=== PATIENT | male | born 1960 | race Caucasian/White ===

== ENCOUNTER 2018-07-08 07:27 | Day surgery (SDC) | payer BC ==
--- NOTE | 2018-06-24 07:14 | HP ---
PREOPERATIVE HISTORY AND PHYSICAL: DATE OF ADMISSION/SURGERY: 07/08/18 DATE OF OFFICE VISIT: 06/23/18 ATTENDING SURGEON: Todd Ulrich MD * (DICTATED BY ALETHA ARRIAGA) PROCEDURES: Right wrist proximal row carpectomy, possible four-corner fusion, posterior interosseous nerve neurectomy, left wrist injection. CHIEF COMPLAINT: Right wrist. HISTORY OF PRESENT ILLNESS: Scott is a 58-year-old male who presents to the clinic for right wrist pain due to early stage III SLAC wrist. He has failed conservative measures, therefore agreed to undergo right wrist proximal row carpectomy, possible four-corner fusion, posterior interosseous nerve neurectomy and left wrist injection with Dr. Ulrich on 07/08/18. PAST MEDICAL HISTORY: Arthritis. PAST SURGICAL HISTORY: Right rotator cuff repair in 2013. Denies prior complications with anesthesia. MEDICATIONS: No active medications. ALLERGIES: No known drug allergies. FAMILY HISTORY: Positive for heart disease, hypertension, stroke, and cancer. Denies family history of DVT or PE. SOCIAL HISTORY: He lives with his spouse. 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 He has never smoked. He reports 5 alcoholic beverage consumption per week. He exercises sporadically. He is right-hand dominant. He denies illegal drug use. REVIEW OF SYSTEMS: A 14-point review of systems was reviewed with the patient. Positive for current complaint, otherwise negative. Denies fevers, chills, chest pain, shortness of breath, history of DVT or PE, history of bleeding disorder. PHYSICAL EXAMINATION GENERAL: A 58-year-old well-developed, well-nourished male, in no acute distress. VITAL SIGNS: Height 67.5, weight 216, pulse 60, blood pressure 156/90, respiratory rate 14, BMI 33.4. HEENT: Normocephalic, atraumatic. PERRLA. Throat: Clear. NECK: Supple. PULMONARY: Lungs are clear to auscultation bilaterally. No wheezing, rhonchi, or rales. CARDIO: Regular rate and rhythm. S1, S2. No murmurs, gallops, or rubs. No edema. ABDOMEN: Positive bowel sounds, soft, nontender. NEURO: Alert and oriented x3. Cranial nerves grossly intact. MUSCULOSKELETAL: Right upper extremity, skin is intact. No warmth or erythema. Limited range of motion of the wrist with about 30 to 40 degrees of extension, flexion to 50 to 60 degrees, tenderness over the dorsal aspect particularly on the radial side, swelling over the dorsal radial wrist. +2 radial pulses. Sensation intact to light touch distally. DIAGNOSTIC STUDIES/LAB DATA: x-rays of the bilateral wrist show stage II SLAC wrist. 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 PLAN: The patient is scheduled to undergo a right wrist proximal row carpectomy , possible four-corner fusion, posterior interosseous nerve neurectomy, and left wrist injection with Dr. Ulrich on 07/08/18. He will follow up in 10 to 14 days postop for a followup and suture removal. ALETHA ARRIAGA [id number]/[facility] #: [id number] MTDD
[~2018-07-08 07:27] MED LIST: Buffered Lidocaine 1% SYRIN* 1 ML/SYRINGE INTRADERM ONE; Lactated Ringers 1000 ML Bag* 1,000 ML IV SCH
[2018-07-08] MEDS ORDERED: ceFAZolin 2 GM in NS PREMIX(*) 2 GM/100 ML BAG IVPB ONE (07:38)
[2018-07-08] MEDS ORDERED: Famotidine IV* 10 MG/ML 2 ML (20 mg) ONE (09:17)
[2018-07-08] MEDS ORDERED: Dexamethasone IV* 4 MG/ML 1 ML (4 MG) ONE (09:17)
[2018-07-08] MEDS ORDERED: Propofol* 10 MG/ML 20 ML BTL ONE (09:24)
[2018-07-08] MEDS ORDERED: KETAMINE HCL* 50 MG/ML 10 ML VIAL ONE (09:24)
[2018-07-08] MEDS ORDERED: Lidocaine 2% PF * 5 ML VIAL ONE (09:24)
[2018-07-08] MEDS ORDERED: Midazolam* 1 MG/ML 5 ML VIAL (5 MG) ONE (09:24)
[2018-07-08] MEDS ORDERED: fentaNYL* 50 MCG/ML 5 ML VIAL (250 MCG VIAL) ONE (09:24)
[2018-07-08] MEDS ORDERED: Betamethasone INJ* 6 MG/ML 5 ML VIAL (30 MG) ONE (09:27)
[2018-07-08] MEDS ORDERED: Bupivacaine 0.25% SDV* 30 ML ONE (09:27)
[2018-07-08] MEDS ORDERED: Lidocaine 1%* 5 ML VIAL ONE (09:28)
[2018-07-08] MEDS ORDERED: Ketorolac INJ* 30 MG/ML 1 ML VIAL ONE (09:55)
[2018-07-08] MEDS ORDERED: Ondansetron INJ* 2 MG/ML VIAL ONE (11:02)
[2018-07-08] MEDS ORDERED: PROCHLORPERAZINE INJ 5 MG/ML 2 ML VIAL ONE (12:41)
[2018-07-08] MEDS ORDERED: fentaNYL* 50 MCG/ML 2 ML VIAL (100 MCG VIAL) ONE ×2 (13:13→14:05)
[2018-07-08] MEDS ORDERED: HYDROcodone/ACETAMIN 5-325 MG* 1 TAB PO PRN (14:05)
[2018-07-08] MEDS ORDERED: oxyCODONE/Acetamin 5/325 MG* TAB PO PRN (14:05)
[2018-07-08] MEDS ORDERED: Naloxone* 0.4 MG/ML 1 ML VIAL IV PRN (14:05)
[2018-07-08] MEDS: fentaNYL* 50 MCG/ML 2 ML VIAL (100 MCG VIAL) IV PRN ×2 (14:06→14:17)
[2018-07-08] MEDS ORDERED: HYDROcodone/ACETAMIN 5-325 MG* 1 TAB ONE (14:17)
[2018-07-08 15:33] VITALS: BP 129/78
--- NOTE | 2018-07-08 23:41 | OP ---
DATE OF OPERATION: 07/08/18 - [facility] DATE OF : 60 SURGEON: Todd Ulrich MD. GLOVE EXAMINER: ALETHA Reyes. An retail store assistant was needed for the entirety of the procedure to aid in positioning of the arm and retraction. ANESTHESIOLOGIST: Dr. Leyva. ANESTHESIA: General. PRE-OP DIAGNOSIS: Right stage 2 to 3 scapholunate advanced collapse wrist. POST-OP DIAGNOSES: Right stage 3 scapholunate advanced collapse wrist. OPERATIVE PROCEDURE: 1. Right wrist scaphoid excision. 2. Right wrist four-corner fusion with distal radius bone graft. 3. Right wrist posterior interosseous nerve neurectomy. ESTIMATED BLOOD LOSS: 20 mL. COMPLICATIONS: Forward fixation of the Acutrak screw required conversion to fusion with the TriMed four-corner fusion plate. INDICATIONS: Scott is 58 years old. He has had a SLAC wrist for some time now. He is at a point now where he wants to proceed with fusion, and so we had discussed risks and benefits and he wanted to proceed. FINDINGS: See above and below. DESCRIPTION OF PROCEDURE: Scott was seen in the preoperative holding area. The correct site, side, and procedure were identified. We came back to the operating room and the arm was prepped and draped in the usual fashion and a time-out was performed. The arm was exsanguinated with the Esmarch and the tourniquet was inflated to 250 mmHg. I began by making a dorsal midline incision. Dissection was carried down through the subcutaneous tissue and full-thickness flaps were raised off the extensor retinaculum. I then opened up the extensor retinaculum overlying the third dorsal compartment. The EPL tendon was released and retracted out of the way. I then raised retinacular flaps radially and ulnarly and then retracted the tendons out of the way to expose the dorsum of the wrist capsule. I then dissected out the last 2 to 3 cm of posterior interosseous nerve. This was clipped at the joint capsule than more proximally and handed off as specimen. After the neurectomy, I went ahead and made a transverse capsulotomy and raised a distally based capsular U-flap to expose the dorsal carpus. The capitolunate articulation was examined, and there was full-thickness cartilage loss there, so we decided to proceed with the four-corner fusion. The scaphoid was excised in piecemeal fashion with the rongeur. The remnant of scapholunate interosseous ligament was excised as well. The radiolunate joint looked good. The lunate was in a lot of hyperextension. I went ahead and prepared my sites for fusion between the lunate and the capitate, the hamate and the triquetrum, the capitate and the hamate and so on. I did this with the rongeur as well as a 2-mm bur. Once I had good cancellous bone that was good for fusion, I went ahead and pinned my lunate out of extension to the capitate using a 0.62-mm K- wire. I then placed the guidewire in the central position on the lunate. This was a guidewire from Mini Acutrak screw. This was placed up into the capitate into the center-center position. I thought everything was looking good. I went ahead and drilled for my screw. I previously measured prior to drilling and selected a 26-mm screw. This was placed up at the appropriate position; however, when I checked my x-ray after placing the screw, the fixation did not look good, and so I checked this clinically and indeed it was not looking good. I thought I could get a better fixation by removing that screw and switching it to a standard Acutrak screw. I did this. I went a couple of millimeters longer as well, and I still had poor fixation. I therefore decided to abandon trying to do the fusion with Acutrak screws and converted to the TriMed dorsal four-corner fusion plate. Given the fact that I would not get as much compression with the plate, I went ahead and harvested some dorsal distal radius bone graft by using my osteotome to open up the dorsal cortex and then the curette to get plenty of cancellous bone from the distal radius. I clamped my articulating surfaces together and pinned them in place with few 0.62 K-wires. I then selected the appropriate size TriMed plate, which was I believe 14 mm. I used the reamer to create a trough for the plate. The plate was placed into position and held in place by the small K-wires that come in the set. I then placed two screws into the capitate, two screws into the lunate, one screw into the triquetrum, and two screws into the hamate. That was all of the holes in the plate. I had already confirmed the alignment on fluoroscopy. I checked my screw length. Everything was looking good. At this point, we were 2-1/2 hours into the tourniquet, so I went ahead and let down the tourniquet. The hand pinked up immediately. I went ahead and copiously irrigated everything out. The wrist at this point had excellent motion without any block with dorsiflexion or palmar flexion. The wrist joint was irrigated out copiously. I then closed the dorsal capsule with 4-0 Vicryl suture. The retinaculum was closed with 3-0 PDS suture, leaving the EPL and the EDM tendons transposed. The wound was irrigated out again. The subcutaneous tissue was reapproximated with 3-0 Vicryl suture and the skin was closed with 4-0 Monocryl suture and Steri-Strips. Marcaine was infiltrated all around the wound. The wound was dressed with 4x4s, Webril, and then a volar plaster wrist splint was applied. He was then taken to the recovery room in stable condition. [id number]/[facility] #: [id number] KENNEY
== END 2018-07-08 13:29 | disposition home or self-care (01) ==
LOC: OREAST 07:27
PROVIDERS: ATTEND Orthopaedic Surgery Hand Surgery
DX: M19.031 Primary osteoarthritis, right wrist (principal); M24.531 Contracture, right wrist
CPT/HCPCS: 76000; 88305; C1713; C1776; J0690; J0702; J0780; J1100; J1885; J2250; J2405; J2704; J3010

== ENCOUNTER 2019-07-11 10:54 | Emergency (ER) | payer BC ==
--- NOTE | 2019-07-11 11:16 | ED ---
Hypertension - HPI Summary HPI Summary: Patient is a 59 y/o M presenting to the ED for a chief complaint of hypertension. Patient reports beginning to feel unwell on 07/08/19 that continued through the weekend. Patient states that he checked his blood pressure on 07/11/19 which was 188/87. Patient notes having a headache, decreased concentration, anxiety, and feeling "shaky." He rates the headache as a 3/10 in severity. Patient denies fever, chest pain or pressure, shortness of breath, or cough. 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 No alleviating factors are reported. He denies an increase in his caffeine intake from his usual consumption. Any significant PMHx including a history of HTN, thyroid problems, or cardiac problems are denied. FMHx of cardiac disease is noted. He takes a vitamin daily, but denies taking any other supplements. Patient denies tobacco use or drug use. He admits drinking 2 beers daily. - History of Current Complaint Chief Complaint: EDHypertension Stated Complaint: HIGH BP PER PT Time Seen by Provider: 07/11/19 11:00 Hx Obtained From: Patient Onset/Duration: Atraumatic, Still Present Timing: Constant Reported Blood Pressure Prior To Arrival: 188/87 Aggravating Factor(s): Other: - Stress Alleviating Factor(s): Nothing Associated Signs & Symptoms: Headaches - Allergies/Home Medications Allergies/Adverse Reactions: Allergies Allergy/AdvReac Type Severity Reaction Status Date / Time Penicillins AdvReac Unknown Verified 07/11/19 10:58 Reaction Details Home Medications: Home Medications Multivitamins/Minerals TAB* [Thera M Plus TAB*] 1 tab PO DAILY 01/02/17 [ History Confirmed 07/11/19] PMH/Surg Hx/FS Hx/Imm Hx Previously Healthy: Yes Endocrine/Hematology History: Denies: Hx Thyroid Disease Cardiovascular History: Denies: Hx Hypertension, Hx Pacemaker/ICD, Other Cardiovascular Problems/ Disorders Musculoskeletal History: Reports: Hx Arthritis - WRISTS, Other Musculoskeletal History - RIGHT WRIST Denies: Hx Rheumatoid Arthritis, Hx Osteoporosis Sensory History: Reports: Hx Contacts or Glasses - GLASSES Denies: Hx Legally Blind, Hx Deafness, Hx Hearing Aid Opthamlomology History: Reports: Hx Contacts or Glasses - GLASSES Denies: Hx Legally Blind EENT History: Denies: Hx Deafness Psychiatric History: Denies: Hx Panic Disorder - Surgical History Surgical History: Yes Surgery Procedure, Year, and Place: Rt ROTATOR [facility] Hx Anesthesia Reactions: No Infectious Disease History: No Infectious Disease History: Denies: Traveled Outside the [place] in Last 30 Days - Family History Known Family History: Positive: Cardiac Disease - Social History Occupation: Employed Full-time Lives: With Family Alcohol Use: Daily Alcohol Amount: 2 beers daily Hx Substance Use: No Substance Use Type: Reports: None Hx Tobacco Use: No Smoking Status (MU): Never Smoked Tobacco Have You Smoked in the Last Year: No Review of Systems Negative: Fever Negative: Chest Pain Negative: Shortness Of Breath, Cough Positive: Headache Psychological: Other - Positive decreased concentration Positive: Anxious All Other Systems Reviewed And Are Negative: Yes Physical Exam - Summary Physical Exam Summary: Constitutional: Well-developed, Well-nourished, Alert. (-) Distressed Skin: Warm, Dry HENT: Normocephalic; Atraumatic Eyes: Conjunctiva normal Neck: Musculoskeletal ROM normal neck. (-) JVD, (-) Stridor, (-) Tracheal deviation Cardio: Rhythm regular, rate normal, Heart sounds normal; Intact distal pulses; The pedal pulses are 2+ and symmetric. Radial pulses are 2+ and symmetric. (-) Murmur Pulmonary/Chest wall: Effort normal. (-) Respiratory distress, (-) Wheezes, (-) Rales Abd: Soft, (-) tenderness, (-) Distension, (-) Guarding, (-) Rebound Musculoskeletal: (-) Edema Lymph: (-) Cervical adenopathy Neuro: Alert, Oriented x3 Psych: Mood and affect Normal Triage Information Reviewed: Yes Vital Signs On Initial Exam: Initial Vitals Temp Pulse Resp BP Pulse Ox 98.7 F 83 16 184/95 98 07/11/19 10:56 07/11/19 10:56 07/11/19 10:56 07/11/19 10:56 07/11/19 10:56 Vital Signs Reviewed: Yes Procedures - Sedation Patient Received Moderate/Deep Sedation with Procedure: No Diagnostics - Vital Signs Vital Signs Temp Pulse Resp BP Pulse Ox 07/11/19 10:56 98.7 F 83 16 184/95 98 - Laboratory Result Diagrams: 07/11/19 11:12 07/11/19 11:12 Lab Statement: Any lab studies that have been ordered have been reviewed, and results considered in the medical decision making process. - EKG 11:19 Cardiac Rate: NL - 76 BPM EKG Rhythm: Sinus Rhythm ST Segment: Normal Ectopy: None EKG Comparison: No Significant Change - No prior EKG available for comparison Summary of EKG Findings: EKG at 11:19 shows normal sinus rhythm with 76 BPM, isolated T wave inversion in lead III. No prior EKG available for comparison. Dr. Sifuentes has reviewed and interpreted this EKG. Hypertension Course/Dx - Course Course Of Treatment: Patient is a 59 y/o M presenting to the ED for a chief complaint of hypertension. Patient reports beginning to feel unwell on 07/08/19 that continued through the weekend. Patient states that he checked his blood pressure on 07/11/19 which was 188/87. Patient notes having a headache, decreased concentration, anxiety, and feeling "shaky." He rates the headache as a 3/10 in severity. Patient denies fever, chest pain or pressure, shortness of breath, or cough. Any significant PMHx including a history of HTN, thyroid problems, or cardiac problems are denied. FMHx of cardiac disease. On exam, unremarkable findings. EKG at 11:19 shows normal sinus rhythm with 76 BPM, isolated T wave inversion in lead III. No prior EKG available for comparison. All other abnormal lab results are not pertinent to current cc. Patient's ED workup negative for acute pathology. BP trended down towards normal without medication. Elevated BP likely stress related. Patient comfort with discharge home. Patient will be discharged with a diagnosis of elevated blood pressure reading, stress, and headache. Follow up with PCP in 2-3 days. - Diagnoses Provider Diagnoses: Elevated blood pressure reading, Headache, Stress Discharge ED - Sign-Out/Discharge Documenting (check all that apply): Patient Departure - Discharge - Discharge Plan Condition: Stable Disposition: HOME Patient Education Materials: Stress (ED) Referrals: Leon Neville MD [Primary Care Provider] - Additional Instructions: RETURN TO THE EMERGENCY DEPARTMENT FOR CHANGING OR WORSENING SYMPTOMS. Follow up with your primary care physician in 2-3 days. - Billing Disposition and Condition Condition: STABLE Disposition: Home - Attestation Statements Document Initiated by Scribe: Yes Documenting Scribe: Brooke Cash Provider For Whom Scribe is Documenting (Include Credential): German Sifuentes DO Scribe Attestation: IBrooke, scribed for German Sifuentes DO on 07/11/19 at 1308. Scribe Documentation Reviewed: Yes Provider Attestation: The documentation as recorded by the scribe, Brooke Cash accurately reflects the service I personally performed and the decisions made by me, German Sifuentes DO Status of Scribe Document: Viewed
[2019-07-11 11:23] LABS: ABS Basophils 0.1 10^3/ul (0-0.2); ABS Eosinophils 0.1 10^3/ul (0-0.6); ABS Lymphocytes 2.2 10^3/ul (1.0-4.8); ABS Monocytes 0.6 10^3/ul (0-0.8); ABS Neutrophils 4.7 10^3/ul (1.5-7.7); Eosinophil % 1.7 %; Hematocrit 47 % (42-52); Lymphocyte % 28.3 %; Mean Corpuscular HGB Conc 36 g/dL (31-36); Mean Corpuscular Hemoglobin 34 pg (27-31); Mean Corpuscular Volume 96 fL (80-94); Mean Platelet Volume 7.3 fL (7.4-10.4); Platelet Count 269 10^3/uL (150-450); Red Blood Count 4.96 10^6 /uL (4.18-5.48); Red Cell Distribution Width 13 % (10-15); White Blood Count 7.8 10^3/uL (3.5-10.8)
[2019-07-11 11:39] LABS: Albumin 4.2 g/dL (3.2-5.2); Albumin/Globulin Ratio 1.4 (1-3); BUN/Creatinine Ratio 17.3 (8-20); Calcium 9.4 mg/dL (8.6-10.3); EGFR African American 88.4 (>60); EGFR Non-African American 73.1 (>60); Potassium 4.2 mmol/L (3.5-5.0); Total Bilirubin 0.6 mg/dL (0.2-1.0); Total Protein 7.2 g/dL (6.4-8.9)
[2019-07-11 11:40] LABS: Troponin I 0.01 ng/mL (<0.03)
[2019-07-11 12:48] VITALS: BP 143/90
== END 2019-07-11 12:56 | disposition home or self-care (01) ==
LOC: ED 10:54
DX: R51 Headache (principal); R03.0 Elevated blood-pressure reading, without diagnosis of hypertension; F43.9 Reaction to severe stress, unspecified; F41.9 Anxiety disorder, unspecified; Z88.0 Allergy status to penicillin; Z79.899 Other long term (current) drug therapy
CPT/HCPCS: 36415; 80053; 84443; 84484; 85025; 93005; 99283

== ENCOUNTER 2020-08-25 15:56 | Inpatient (IN) ==
[2020-08-25] MEDS ORDERED: Nitro 2% OINT (Nitroglycerin) 1 INCH/PAK TOPICAL ONE (16:13)
[2020-08-25 16:21] LABS: ABS Basophils 0.1 10^3/ul (0-0.2); ABS Eosinophils 0.2 10^3/ul (0-0.6); ABS Lymphocytes 2.3 10^3/ul (1.0-4.8); ABS Monocytes 0.8 10^3/ul (0-0.8); ABS Neutrophils 6.1 10^3/ul (1.5-7.7); Eosinophil % 2.3 %; Hematocrit 48 % (42-52); Hemoglobin 16.6 g/dL (14.0-18.0); Lymphocyte % 24.5 %; Mean Corpuscular HGB Conc 35 g/dL (31-36); Mean Corpuscular Hemoglobin 33 pg (27-31); Mean Corpuscular Volume 96 fL (80-94); Mean Platelet Volume 7.6 fL (7.4-10.4); Platelet Count 254 10^3/uL (150-450); Red Blood Count 4.98 10^6 /uL (4.18-5.48); Red Cell Distribution Width 13 % (10-15); White Blood Count 9.5 10^3/uL (3.5-10.8)
[2020-08-25 16:40] LABS: ALT 35 U/L (7-52); AST 26 U/L (13-39); Albumin 3.8 g/dL (3.2-5.2); Albumin/Globulin Ratio 1.4 (1-3); Alkaline Phosphatase 62 U/L (34-104); Anion Gap 6 mmol/L (2-11); Blood Urea Nitrogen 18 mg/dL (6-24); CO2 Carbon Dioxide 27 mmol/L (22-32); Chloride 103 mmol/L (101-111); EGFR African American 89.1 (>60); EGFR Non-African American 73.7 (>60); Globulin 2.7 g/dL (2-4); Glucose 116 mg/dL (70-100); Magnesium 1.9 mg/dL (1.9-2.7); Sodium 136 mmol/L (135-145); Total Protein 6.5 g/dL (6.4-8.9)
[2020-08-25 16:44] LABS: Troponin I 0.07 ng/mL (<0.03)
[2020-08-25] MEDS ORDERED: Ondansetron 4 mg VIAL 2 MG/ML 2 ml VIAL IV PRN (18:13)
[2020-08-25 19:31] LABS: Troponin I 0.47 ng/mL (<0.03)
[2020-08-25] MEDS ORDERED: Heparin DRIP 25,000 UNITS BAG 25,000 UNITS/500 ML BAG IV SCH (19:45)
[2020-08-25] MEDS ORDERED: Heparin 5000 UNITS/ML 1 mL VIAL IV PRN (20:00)
[2020-08-25] MEDS ORDERED: Heparin 5000 UNITS/ML 1 mL VIAL IV SCH (20:00)
[2020-08-25] MEDS: Heparin DRIP 25,000 UNITS BAG 25,000 UNITS/500 ML BAG IV SCH (20:38)
[2020-08-25] MEDS ORDERED: Heparin 5000 UNITS/ML 1 mL VIAL SUBCUT SCH (22:00)
[2020-08-26 02:13] LABS: Troponin I 1.36 ng/mL (<0.03)
[2020-08-26 05:32] LABS: ABS Basophils 0.1 10^3/ul (0-0.2); ABS Eosinophils 0.2 10^3/ul (0-0.6); ABS Monocytes 0.6 10^3/ul (0-0.8); ABS Neutrophils 5.3 10^3/ul (1.5-7.7); Eosinophil % 2.5 %; Hematocrit 48 % (42-52); Hemoglobin 16.7 g/dL (14.0-18.0); Lymphocyte % 24.7 %; Mean Corpuscular HGB Conc 35 g/dL (31-36); Mean Corpuscular Hemoglobin 33 pg (27-31); Mean Corpuscular Volume 96 fL (80-94); Mean Platelet Volume 7.3 fL (7.4-10.4); Platelet Count 238 10^3/uL (150-450); Red Blood Count 5.02 10^6 /uL (4.18-5.48); Red Cell Distribution Width 13 % (10-15); White Blood Count 8.2 10^3/uL (3.5-10.8)
[2020-08-26 06:03] LABS: Troponin I 1.39 ng/mL (<0.03)
[2020-08-26] MEDS: Multivitamins/Minerals TAB PO SCH (08:44)
[2020-08-26 08:48] LABS: Cholesterol 154 mg/dL; HDL Cholesterol 45.8 mg/dL; LDL Cholesterol 86 mg/dL; Triglycerides 112 mg/dL
[2020-08-26] MEDS ORDERED: [UNRECOGNIZED DRUG - OTHER] PO SCH (09:00)
[2020-08-26 09:12] LABS: Troponin I 1.09 ng/mL (<0.03)
[2020-08-26 12:36] LABS: INR 1.14 (0.82-1.09)
[2020-08-26 12:47] LABS: ABS Eosinophils 0.1 10^3/ul (0-0.6); ABS Lymphocytes 2.1 10^3/ul (1.0-4.8); ABS Monocytes 0.7 10^3/ul (0-0.8); ABS Neutrophils 5.4 10^3/ul (1.5-7.7); Calcium 8.7 mg/dL (8.6-10.3); EGFR African American 102.8 (>60); Eosinophil % 1.1 %; Hematocrit 49 % (42-52); Lymphocyte % 25.2 %; Mean Corpuscular HGB Conc 35 g/dL (31-36); Mean Corpuscular Hemoglobin 34 pg (27-31); Mean Corpuscular Volume 97 fL (80-94); Mean Platelet Volume 7.9 fL (7.4-10.4); Nucleated Red Blood Cells % 0.1; Platelet Count 212 10^3/uL (150-450); Red Blood Count 5.09 10^6 /uL (4.18-5.48); Red Cell Distribution Width 13 % (10-15); White Blood Count 8.4 10^3/uL (3.5-10.8)
[2020-08-27] MEDS ORDERED: NS 0.9% 1000 ml BAG 1,000 ML IV SCH ×2 (00:05→10:15)
[2020-08-27] MEDS: Heparin DRIP 25,000 UNITS BAG 25,000 UNITS/500 ML BAG IV SCH (01:41)
[2020-08-27 04:37] LABS: ABS Basophils 0.1 10^3/ul (0-0.2); ABS Eosinophils 0.2 10^3/ul (0-0.6); ABS Lymphocytes 2.7 10^3/ul (1.0-4.8); ABS Monocytes 0.6 10^3/ul (0-0.8); Eosinophil % 2.8 %; Hematocrit 47 % (42-52); Hemoglobin 16.5 g/dL (14.0-18.0); Lymphocyte % 35.1 %; Mean Corpuscular HGB Conc 35 g/dL (31-36); Mean Corpuscular Hemoglobin 33 pg (27-31); Mean Corpuscular Volume 95 fL (80-94); Mean Platelet Volume 7.6 fL (7.4-10.4); Nucleated Red Blood Cells % 0.1; Platelet Count 210 10^3/uL (150-450); Red Blood Count 4.94 10^6 /uL (4.18-5.48); Red Cell Distribution Width 13 % (10-15); White Blood Count 7.6 10^3/uL (3.5-10.8)
[2020-08-27 04:44] LABS: Calcium 8.6 mg/dL (8.6-10.3); EGFR African American 100.3 (>60); EGFR Non-African American 82.9 (>60); Potassium 4.1 mmol/L (3.5-5.0)
[2020-08-27] MEDS ORDERED: Perflutren Lipid Microsphere 3 ML VIAL ONE (07:59)
[2020-08-27] MEDS: Multivitamins/Minerals TAB PO SCH (08:14)
[2020-08-27] MEDS ORDERED: VERAPAMIL 2.5 MG/ML 2 ML VIAL ** 5 mg/2 ml ONE (08:23)
[2020-08-27] MEDS ORDERED: fentaNYL 100 mcg/2 ml 50 MCG/ML VIAL ONE (08:23)
[2020-08-27] MEDS ORDERED: Midazolam 5 mg/5 ml VIAL 1 mg/ml 5 ml VIAL (5 mg) ONE (08:23)
[2020-08-27] MEDS ORDERED: Heparin 2 UNITS/ML 1000 mls 2,000 ML IV ONE (08:24)
[2020-08-27] MEDS ORDERED: Heparin 1,000 UNIT/ML 10 ml (10,000 UNITS) CATHLAB/DIALYSIS ONE (08:24)
[2020-08-27] MEDS ORDERED: nitroGLYCERIN DRIP 25,000 MCG/250 ML BTL ONE ×2 (08:24→08:53)
[2020-08-27] MEDS ORDERED: Lidocaine 1% VIAL 10 MG/ML VIAL ONE (08:24)
[2020-08-27] MEDS ORDERED: Iohexol 350 (CONTRAST) 200 ML MDV IV ONE (08:24)
[2020-08-27] MEDS ORDERED: Bivalirudin 250 MG VIAL ONE (09:17)
[2020-08-27 12:31] VITALS: BP 128/87
== END 2020-08-27 11:00 | disposition short-term general hospital (02) | DRG 190 ==
LOC: ED 15:56 → MEDTELE 15:56 → ED 19:15
PROVIDERS: ADMIT Internal Medicine